=== PATIENT | female | born 1965 | race Caucasian/White ===

== ENCOUNTER 2017-07-31 19:51 | Outpatient (CLI) | payer BC, OTHER ==
[~2017-07-31 19:51] MED LIST: ACET325T49 PO; ASPI-999 PO; BUPR100T15 PO; CITA10TA7 PO; DEXT1DRO OU; DOXA2TAB2 PO; FAMO20TA5 PO; HEPA500018 SC; LISI-552 PO; NF-NACL1GT PO; Oxycodone Hcl PO; POTA20TA8 PO
[2017-08-31] MEDS ORDERED: SULF1TAB35 PO (19:23)
== END 2017-08-01 06:15 | disposition home or self-care (01) ==
LOC: SLEEP 19:51
DX: G47.10 Hypersomnia, unspecified (principal); R06.83 Snoring; I10 Essential (primary) hypertension
CPT/HCPCS: 95811

== ENCOUNTER 2017-08-31 12:11 | Day surgery (SDC) | payer BC ==
[~2017-08-31] VITALS: Ht 170.2 cm; Wt 111.1 kg
[~2017-08-31 12:11] MED LIST changes: +HEPA500017 SC; -HEPA500018 SC
--- OUTSIDE RECORDS SUMMARY | 2017-08-31 12:15 | XMS REPORT | Encounter Summary ---
Author Author [facility] Organization [facility] Address Unknown Phone Unavailable Care Team Providers Care Editor Publications Name Role Phone PCP Unavailable Encounter Details Date Type Department Care Team Description 07/08/2017 Ancillary Rad Outpatient, Radiologist Diagnosis unknown Orders [address] [place] [address] Social History Tobacco Use Types Packs/Day Years Used Date Never Smoker Smokeless Tobacco: Never Used Alcohol Use Drinks/Week oz/Week Comments No 0 Standard 0.0 drinks or equivalent Sex Assigned at Date Recorded Not on file as of this encounter Functional Status Functional Status Response Date of Assessment Does the patient have a hearing impairment: No 05/08/2016 as of this encounter Plan of Treatment Not on fileas of this encounter Results * CTA HEAD EXTERNAL IMAGING (07/05/2017) Narrative This order has been auto finalized and does not contain a result. in this encounter Visit Diagnoses Diagnosis Diagnosis unknown Other unknown and unspecified cause of morbidity or mortality in this encounter
--- OUTSIDE RECORDS SUMMARY | 2017-08-31 12:15 | XMS REPORT | Clinical Summary ---
Author Author [facility] Organization [facility] Address Unknown Phone Unavailable Care Team Providers Care Bradley Linebacker Crewmember Name Role Phone PCP Unavailable Source Comments Some departments are not documenting in the electronic medical record. If you do not see the information that you expected, contact Release of Information in the Health Information Management department at [phone] for further assistance in locating additional records.[facility] Allergies Active Allergy Reactions Severity Noted Date Comments Celecoxib RASH, ITCHING Medium 06/01/2016 Current Medications Prescription Sig. Disp. Refills Start End Date Status Date citalopram (CELEXA) 10 mg Take 10 mg by mouth 05/29/20 Active tablet daily. 16 famotidine (PEPCID) 20 mg Take 20 mg by mouth twice Active tablet daily. ondansetron (ZOFRAN ODT) Take by mouth every 8 Active 4 mg rapid dissolve hours as needed for tablet Nausea. MULTIVITAMIN PO Take 1 Tab by mouth Active daily. oxyCODONE (ROXICODONE, Take 1 Tab by mouth every Active OXY-IR) 5 mg tablet 4 hours as needed for Pain acetaminophen (TYLENOL) Take 500 mg by mouth. Max Active 500 mg tablet of 4,000 mg of acetaminophen in 24 hours. Take 2 tablets as needed aspirin EC 81 mg tablet Take 81 mg by mouth three Active times daily. Take with food. buPROPion (WELLBUTRIN) Take 100 mg by mouth Active 100 mg tablet twice daily. doxazosin (CARDURA) 2 mg Take 2 mg by mouth daily. Active tablet lisinopril (PRINIVIL; Take 20 mg by mouth Active ZESTRIL) 20 mg tablet daily. potassium chloride SR Take 20 mEq by mouth Active (K-DUR) 10 mEq tablet daily. Take with a meal and a full glass of water. 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) 04/21/2016 Encounters Date Type Specialty Care Team Description 07/08/2017 Ancillary Radiology Outpatient, Radiologist Diagnosis unknown Orders 07/05/2017 Hospital Radiology Encounter from Last 3 Months Family History Medical History Relation Name Comments Coronary Artery Disease Father Heart Attack Father Hypertension Father Stroke Father Cancer Maternal Grandmother Cataract Maternal Grandmother Dementia Mother Relation Name Status Comments Father (Age 60's?) Maternal Grandmother Mother pneumonia (Age 80?) Social History Tobacco Use Types Packs/Day Years Used Date Never Smoker Smokeless Tobacco: Never Used Alcohol Use Drinks/Week oz/Week Comments No 0 Standard 0.0 drinks or equivalent Sex Assigned at Date Recorded Not on file Last Filed Vital Signs Vital Sign Reading Time Taken Blood Pressure 112/78 04/03/2017 1:14 PM CDT Pulse 72 04/03/2017 1:14 PM CDT Temperature 36.4 C (97.5 F) 06/01/2016 11:33 AM CDT Respiratory Rate 18 06/01/2016 11:33 AM CDT Oxygen Saturation 95% 05/11/2016 9:30 AM CDT Inhaled Oxygen - - Concentration Weight 110.7 kg (244 lb) 04/03/2017 1:14 PM CDT Height 170.2 cm (5' 7") 04/03/2017 1:14 PM CDT Body Mass Index 38.22 04/03/2017 1:14 PM CDT Plan of Treatment Health Maintenance Due Date Last Done Comments PHYSICAL (COMPREHENSIVE) 1972 EXAM PERTUSSIS VACCINE 1976 TETANUS VACCINE 1982 CERVICAL CANCER SCREENING 1995 BREAST CANCER SCREENING 2005 INFLUENZA VACCINE 06/18/2017 COLORECTAL CANCER 04/30/2026 04/30/2016, 04/30/2016 SCREENING Implants Implanted Type Area Tool Crib Manager Device Expiration Model / Identifier Date Serial / Lot Device Closure 6fr Starclose Se Right: [employer]:VASC [id number] / Vascular Nitinol Clip - [id number] Femoral DEV [id number] . / Implanted: Qty: 1 on 04/21/2016 by Artery [id number] Bolivar MD Substitute Tissue 3x3in Lyoplant Left: AESCULAP NEURO 09/17/2018 [id number] / Dura Sodium Hydroxide [employer] [id number] / Implanted: Qty: 1 on 04/24/2016 by [id number] Modesto Hsu MD Synapse Medical Aneurysm Clip Left: 45.711 / Implanted: Qty: 1 on 04/24/2016 by Brain N/A / Modesto Hsu MD N/A Synapse Medical Aneurysm Clip Left: 45.680 / Implanted: Qty: 1 on 04/24/2016 by Brain N/A / Modesto Hsu MD N/A Device Closure 70cm 6fr Angio-Seal Right: [employer] MED [id number] / Vip .035in Vascular Femoral [id number] . / Implanted: Qty: 1 on 04/27/2016 by Artery [id number] Abiodun Silva MD System Shunt Progav 2.0 Cranial AESCULAP INC 05/17/2020 [id number] / Implanted: Qty: 1 on 05/08/2016 by [id number] / Mihai Collier MD [id number] Results * CTA HEAD EXTERNAL IMAGING (07/05/2017) Narrative This order has been auto finalized and does not contain a result. from Last 3 Months
--- OUTSIDE RECORDS SUMMARY | 2017-08-31 12:15 | XMS REPORT | Encounter Summary ---
Author Author [facility] Organization [facility] Address Unknown Phone Unavailable Care Team Providers Care Internet Webmaster Name Role Phone PCP Unavailable Encounter Details Date Type Department Care Team Description 07/05/2017 Hospital [facility] Radiology [address] [place] [address] Social History Tobacco Use Types Packs/Day Years Used Date Never Smoker Smokeless Tobacco: Never Used Alcohol Use Drinks/Week oz/Week Comments No 0 Standard 0.0 drinks or equivalent Sex Assigned at Date Recorded Not on file as of this encounter Functional Status Functional Status Response Date of Assessment Does the patient have a hearing impairment: No 05/08/2016 as of this encounter Medications at Time of Discharge Medication Sig. Disp. Refills Start Date End Date acetaminophen (TYLENOL) Take 500 mg by mouth. Max 500 mg tablet of 4,000 mg of acetaminophen in 24 hours. Take 2 tablets as needed aspirin EC 81 mg tablet Take 81 mg by mouth three times daily. Take with food. buPROPion (WELLBUTRIN) Take 100 mg by mouth 100 mg tablet twice daily. citalopram (CELEXA) 10 mg Take 10 mg by mouth 05/29/2016 tablet daily. doxazosin (CARDURA) 2 mg Take 2 mg by mouth daily. tablet famotidine (PEPCID) 20 mg Take 20 mg by mouth twice tablet daily. lisinopril (PRINIVIL; Take 20 mg by mouth ZESTRIL) 20 mg tablet daily. MULTIVITAMIN PO Take 1 Tab by mouth daily. ondansetron (ZOFRAN ODT) Take by mouth every 8 4 mg rapid dissolve hours as needed for tablet Nausea. oxyCODONE (ROXICODONE, Take 1 Tab by mouth every OXY-IR) 5 mg tablet 4 hours as needed for Pain potassium chloride SR Take 20 mEq by mouth (K-DUR) 10 mEq tablet daily. Take with a meal and a full glass of water. as of this encounter Plan of Treatment Not on fileas of this encounter Results * CTA HEAD EXTERNAL IMAGING (07/05/2017) Narrative This order has been auto finalized and does not contain a result. in this encounter Visit Diagnoses Diagnosis Diagnosis unknown Other unknown and unspecified cause of morbidity or mortality in this encounter
[2017-08-31] MEDS ORDERED: NS IV 1000 ML 1,000 ML IV ONE (12:39)
[2017-08-31] MEDS ORDERED: ONDANSETRON 4 MG/2 ML (SDV) Z0FRAN IVP ONE (13:15)
--- NOTE | 2017-08-31 13:17 | ED GI ---
General Chief Complaint: Dizziness/Syncope Stated Complaint: DIZZY, UPSET STOMACH, "WATER IN HEAD" Nursing Triage Note: c/o intermittant dizziness and nausea x 6 weeks. Reportedly had a MRI and CT in [place] where her provider is 3 weeks ago. GCS-15. Hx of cerbral aneurysm with shunt placement 2014. Sepsis Screen: No Definite Risk Source of Information: Patient, Family ([id number]) Exam Limitations: No Limitations History of Present Illness Time Seen By Provider: 12:12 Initial Comments Patient presents to ER by private conveyance with chief complaint that she was having nausea with vomiting, malaise for the past couple weeks. She has a history of a subarachnoid hemorrhage approximately one year ago and shunt placement. At the time 2 weeks ago when her nausea and vomiting started she thought she had a stomach bug because her was experiencing the same thing. She went to her primary care doctor who ordered a CT scan of the head in [place] to evaluate her shunt and she was told it was normal by both her primary care physician and her neurologist in [place], Dr. Lincoln. She says her symptoms got better after a couple days but then 3 or 4 days later they came back for a couple days. Every 3-4 days she's had a day or 2 of nausea and vomiting. She has Zofran at home but has not used it the last 2 days because she feels that it does not work very well for her. She denies dysuria or discharge, cough or shortness of breath, chest pain or headache. She says she checked her temperature several times and has been is 99.9. She denies any loose stools and states that she's been constipated and had a bowel movement yesterday with rabbit pellets. She describes several episodes where her nausea comes on very rapidly after eating food one to 2 hours later. She still has her gallbladder intact. She has mild tenderness in her abdomen on the right side, worse after vomiting. She states she's had an appetite but been unable to keep anything down and has vomited 4 times in the last 24 hours. She has also been dizzy with position changes. She said she was referred to ENT within the last 2 weeks and they did an MRI looking for a tumor but it was negative. Allergies and Home Medications Allergies Coded Allergies: No Known Drug Allergies (Unverified , 04/21/16) Home Medications Acetaminophen 325 Mg Tablet, 650 MG PO Q4H PRN for MILD PAIN, #100 Prescribed by: KULDIP WALTERS on 05/28/16 1642 Aspirin 81 Mg Tab.chew, 81 MG PO Q8HR, #90 Prescribed by: KULDIP WALTERS on 05/28/16 164 Bupropion HCl 100 Mg Tablet, 100 MG PO BID, #60 Prescribed by: KULDIP WALTERS on 05/28/16 164 Citalopram Hydrobromide 10 Mg Tablet, 10 MG PO DAILY, #30 Prescribed by: KULDIP WALTERS on 05/28/16 1642 Dextran 70/Hypromellose/Pf 1 Each Droperette, 1 EACH OU QID, #1 Prescribed by: KULDIP WALTERS on 05/28/16 164 Doxazosin Mesylate 2 Mg Tablet, 2 MG PO HS, #30 Prescribed by: KULDIP WALTERS on 05/28/16 1642 Famotidine 20 Mg Tablet, 20 MG PO BID, #60 Prescribed by: KULDIP WALTERS on 05/28/16 1642 Heparin Sodium,Porcine 5,000 Unit/1 Ml Vial, 5,000 UNITS SC Q8H, #1 Prescribed by: KULDIP WALTERS on 05/28/16 1642 Lisinopril 20 Mg Tablet, 20 MG PO DAILY, #30 Prescribed by: KULDIP AWLTERS on 05/28/16 1642 Potassium Chloride 20 Meq Tab.er.prt, 40 MEQ PO DAILY@0700, #30 Prescribed by: KULDIP WALTERS on 05/28/16 164 Sodium Chloride 1 Gm Tab, 2 GM PO TID, #60 Prescribed by: KULDIP WALTERS on 05/28/16 1642 [Oxycodone Hcl] 5 MG TAB, 5 MG PO Q4H PRN for PAIN, #60 Prescribed by: KULDIP WALTERS on 05/28/16 1643 Review of Systems Constitutional: No chills, dizziness, No fever, malaise EENTM: No Blurred Vision, No Double Vision, No Eye Pain Respiratory: Denies Cough, Denies Orthopnea, Denies Shortness of Air Cardiovascular: Denies Chest Pain, Denies Lightheadedness Gastrointestinal: See HPI, Denies Abdomen Distended, Abdominal Pain, Constipated, Denies Diarrhea, Nausea, Denies Poor Appetite, Vomiting Genitourinary: Denies Burning, Denies Discharge Musculoskeletal: No back pain, No joint pain Skin: No pruritus, No rash Psychiatric/Neurological: Denies Headache, Denies Numbness, Denies Paresthesia Endocrine: Denies Unexplained Weight Gain, Denies Unexplaned Weight Loss Hematologic/Lymphatic: Denies Easy Bleeding, Denies Easy Bruising Past Jkrgccs-Xwmzbk-Sldngr Hx Patient Social History Alcohol Use: Denies Use Recreational Drug Use: No Smoking Status: Former Smoker Recent Foreign Travel: No Contact w/Someone Who Travel: No Recent Infectious Disease Expo: No Immunizations Up To Date Tetanus Booster (TDap): Unknown Surgeries History of Surgeries: Yes (craniotomy-shunt placement (cerebral aneurysm)) Respiratory History of Respiratory Disorde: Yes (post vent-resp insufficiency-) Currently Using CPAP: No Currently Using BIPAP: No Cardiovascular History of Cardiac Disorders: Yes Neurological History of Neurological Disord: Yes (subarachnoid hemorrage) Reproductive System Hx Reproductive Disorders: No Sexually Transmitted Disease: No HIV/AIDS: No Female Reproductive Disorders: Denies Gastrointestinal History of Gastrointestinal Di: Yes (ilius; current) Musculoskeletal History of Musculoskeletal Dis: Yes Musculoskeletal Disorders: Foot Drop Endocrine History of Endocrine Disorders: No Cancer History of Cancer: No Psychosocial History of Psychiatric Problem: Yes Behavioral Health Disorders: Anxiety, Depression Integumentary History of Skin or Integumenta: No Blood Transfusions History of Blood Disorders: No Family Medical History Family Medial History: Patient reports no known family medical history. Physical Exam Vital Signs VS - Last 72 Hours, by Label 08/31/17 08/31/17 08/31/17 12:29 14:20 14:30 Temp 97.5 97.5 Pulse 74 68 83 81 Resp 16 B/P (MAP) 111/67 O2 Delivery Room Air Capillary Refill : Less Than 3 Seconds General Appearance: WD/WN, mild distress, obese HEENT: PERRL/EOMI, TMs normal, pharynx normal Neck: non-tender, supple, normal inspection Respiratory: chest non-tender, lungs clear, normal breath sounds Cardiovascular: normal peripheral pulses, regular rate, rhythm, no edema Peripheral Pulses: 1+ Dorsalis Pedis (R), 1+ Left Dors-Pedis (L), 2+ Radial Pulses (R), 2+ Radial Pulses (L) Gastrointestinal: normal bowel sounds, soft, no organomegaly (Gutierrez's negative ), tenderness (right upper quadrant and right lower quadrant) Extremities: non-tender, normal inspection, no pedal edema, no calf tenderness , normal capillary refill Neurologic/Psychiatric: alert, normal mood/affect, oriented x 3 Skin: normal color, warm/dry Focused Exam Evaluation Lactate Level Laboratory Tests 08/31/17 14:06: Lactic Acid Level 0.73 Lactic Acid Level Laboratory Tests Test 08/31/17 14:06 Lactic Acid Level 0.73 MMOL/L (0.50-2.00) Date of ETT Placement: Apr 21, 2016 Time of ETT Placement: 004 Progress/Results/Core Measures Results/Orders Lab Results Laboratory Tests Test 08/31/17 13:15 08/31/17 14:06 08/31/17 14:55 Range/Units White Blood Count 12.4 H 4.3-11.0 10^3/uL Red Blood Count 4.70 4.35-5.85 10^6/uL Hemoglobin 13.8 11.5-16.0 G/DL Hematocrit 41 35-52 % Mean Corpuscular Volume 88 80-99 FL Mean Corpuscular Hemoglobin 29 25-34 PG Mean Corpuscular Hemoglobin Concent 34 32-36 G/DL Red Cell Distribution Width 15.4 H 10.0-14.5 % Platelet Count 408 H 130-400 10^3/uL Mean Platelet Volume 9.7 7.4-10.4 FL Neutrophils (%) (Auto) 82 H 42-75 % Lymphocytes (%) (Auto) 10 L 12-44 % Monocytes (%) (Auto) 8 0-12 % Eosinophils (%) (Auto) 1 0-10 % Basophils (%) (Auto) 0 0-10 % Neutrophils # (Auto) 10.1 H 1.8-7.8 X 10^3 Lymphocytes # (Auto) 1.2 1.0-4.0 X 10^3 Monocytes # (Auto) 1.0 0.0-1.0 X 10^3 Eosinophils # (Auto) 0.1 0.0-0.3 10^3/uL Basophils # (Auto) 0.0 0.0-0.1 10^3/uL Sodium Level 139 135-145 MMOL/L Potassium Level 4.3 3.6-5.0 MMOL/L Chloride Level 106 98-107 MMOL/L Carbon Dioxide Level 23 21-32 MMOL/L Anion Gap 10 5-14 MMOL/L Blood Urea Nitrogen 16 7-18 MG/DL Creatinine 1.01 0.60-1.30 MG/DL Estimat Glomerular Filtration Rate 58 BUN/Creatinine Ratio 16 Glucose Level 119 H 70-105 MG/DL Calcium Level 9.3 8.5-10.1 MG/DL Magnesium Level 2.3 1.8-2.4 MG/DL Total Bilirubin 0.5 0.1-1.0 MG/DL Aspartate Amino Transf (AST/SGOT) 20 5-34 U/L Alanine Aminotransferase (ALT/SGPT) 21 0-55 U/L Alkaline Phosphatase 136 40-136 U/L Troponin I < 0.30 <0.30 NG/ML C-Reactive Protein High Sensitivity 3.93 H 0.00-0.50 MG/DL Total Protein 7.7 6.4-8.2 GM/DL Albumin 4.2 3.2-4.5 GM/DL Lipase 43 8-78 U/L Lactic Acid Level 0.73 0.50-2.00 MMOL/L Urine Color BROWN H Urine pH 6.5 5-9 Urine Specific Sharps 1.020 1.016-1.022 Urine Protein 3+ H NEGATIVE Urine Glucose (UA) NEGATIVE NEGATIVE Urine Ketones 2+ H NEGATIVE Urine Nitrite POSITIVE H NEGATIVE Urine Bilirubin 1+ H NEGATIVE Urine Urobilinogen 1 NORMAL MG/DL Urine Leukocyte Esterase 2+ H NEGATIVE Urine RBC (Auto) 5+ H NEGATIVE Urine RBC TNTC H /HPF Urine WBC 10-25 H /HPF Urine Crystals NONE /LPF Urine Bacteria LARGE H /HPF Urine Casts NONE /LPF Urine Mucus NEGATIVE /LPF Urine Culture Indicated YES My Orders Orders - SIMA BENITEZ Cbc With Automated Diff (08/31/17 12:39) Comprehensive Metabolic Panel (08/31/17 12:39) Hs C Reactive Protein (08/31/17 12:39) Lipase (08/31/17 12:39) Magnesium (08/31/17 12:39) Troponin I (08/31/17 12:39) Ua Culture If Indicated (08/31/17 12:39) Us Gallbladder [id number] (08/31/17 12:39) Saline Lock/Iv-Start (08/31/17 12:39) Ns Iv 1000 Ml (Sodium Chloride 0.9%) (08/31/17 12:39) Urine Bedside (08/31/17 12:39) Ondansetron Injection (Zofran Injectio (08/31/17 13:15) Orthostatic Vital Signs (08/31/17 13:21) Lactic Acid Analyzer (08/31/17 13:57) Promethazine Injection (Phenergan Injec (08/31/17 14:15) Ketorolac Injection (Toradol Injection) (08/31/17 14:15) Medications Given in ED Current Medications Medications Dose Ordered Sig/Kerline Route Start Time Stop Time Status Last Admin Dose Admin Ketorolac Tromethamine 15 mg ONCE ONCE IVP 08/31/17 14:15 08/31/17 14:16 DC 08/31/17 14:20 15 MG Ondansetron HCl 4 mg ONCE ONCE IVP 08/31/17 13:15 08/31/17 13:16 DC 08/31/17 13:10 4 MG Promethazine HCl 25 mg ONCE ONCE IVP 08/31/17 14:15 08/31/17 14:16 DC 08/31/17 14:20 25 MG Sodium Chloride 1,000 ml @ 0 mls/hr Q0M ONCE IV 08/31/17 12:39 08/31/17 12:43 DC 08/31/17 13:10 1,000 MLS/HR Vital Signs/I&O Vital Sign - Last 12Hours 08/31/17 08/31/17 08/31/17 12:29 14:20 14:30 Temp 97.5 97.5 Pulse 74 68 83 81 Resp 16 B/P (MAP) 111/67 O2 Delivery Room Air Blood Pressure Mean: 82 Progress Note : Time: 13:21 Progress Note We'll get an ultrasound her gallbladder and do some Kell-Hallpike maneuvers trying to figure out the source of her dizziness and vomiting. Seems a her vomiting was comes after eating. Her dizziness due to postural change may be orthostatics static vital signs. Diagnostic Imaging Diagonstic Imaging: Ultrasound Plain Films/CT/US/NM/MRI: abdomen (right upper quadrant, gallbladder) Comments NAME: CHARLIE SANDERS [facility] REC#: [id number] PHYSICIAN: SIMA BENITEZ MD CC: MICHAEL HEATON MD; SIMA BENITEZ Page 2 of 2 RADIOLOGY REPORT VIA [facility], [facility] [place], [place] CC: MICHAEL HEATON MD; SIMA BENITEZ Page 1 of 2 RADIOLOGY REPORT NAME: CHARLIE SANDERS [facility] REC#: [id number] PT STATUS: REG ER : 1965 PHYSICIAN: SIMA BENITEZ MD ADMIT DATE: 08/31/17/ER Signed Date of Exam: 08/31/17 US GALLBLADDER [id number] PROCEDURE: US Gallbladder. TECHNIQUE: Multiple real-time grayscale images were obtained over the right upper quadrant in various projections. INDICATION: Right upper quadrant pain. FINDINGS: The liver appears enlarged measuring up to 20 cm and demonstrates a marked increase in echogenicity which is most compatible with underlying steatosis. There is no demonstration of a focal intrahepatic abnormality or evidence of intrahepatic biliary dilatation. The gallbladder lumen is entirely filled with small stones. There is no definitive gallbladder wall thickening or evidence of pericholecystic fluid. The common bile duct could not be demonstrated. Pancreas is not seen due to overlying bowel gas. The right kidney appears nonobstructed. No free fluid is evident. The rn advanced does report a positive sonographic Gutierrez sign. IMPRESSION: 1. The entire lumen of the gallbladder is filled with gallstones. There is no evidence of intrahepatic biliary dilatation or findings to suggest gallbladder wall thickening or pericholecystic fluid. The patient does however have a positive sonographic Gutierrez sign. A nuclear HIDA scan would be useful for further assessment to evaluate for acute cholecystitis if clinically indicated. There is no free fluid or ascites evident 2. Hepatomegaly with probable steatosis. Dictated by: Dictated on workstation # [id number] Dict: 08/31/17 1341 Trans: 08/31/17 1418 Interpreted by: MICHAEL HEATON MD Electronically signed by: MICHAEL HEATON MD 08/31/17 1418 Reviewed: Reviewed by Me Consults Consults : Consulting Physician: KULDIP ANGUIANO DO Consults Notes Discussed the clinical findings, imaging, lab and he says if she wants to do the surgery today he will take drops and do the surgery today but if she wants to set up outpatient he'll do that too. Departure Communication (Admissions) Time/Spoke to Admitting Phy: 15:25 Communication Discussed the case and the patient's desire to have surgery done today and he says put her in observation some fluids pain and nausea medicine and he will see her later this afternoon. Impression Impression: Primary Impression: Cholelithiasis Qualified Codes: K80.20 - Calculus of gallbladder without cholecystitis without obstruction Additional Impression: Nausea and vomiting Qualified Codes: R11.14 - Bilious vomiting Disposition: 09 ADMITTED INPATIENT Condition: Improved Admissions Decision to Admit Reason: Admit from ER (General) Decision to Admit/Date: Aug 31, 2017 Time/Decision to Admit Time: 15:29 Departure-Patient Inst. Referrals: BERNABE FERRARI DO (PCP/Family) Primary Care Physician Copy Copies To 1: BERNABE FERRARI TITUS J Aug 31, 2017 13:17
[2017-08-31 13:21] LABS: BASOPHILS % (AUTO) 0 % (0-10); EOSINOPHILS # (AUTO) 0.1 10^3/uL (0.0-0.3); EOSINOPHILS % (AUTO) 1 % (0-10); LYMPHOCYTES # (AUTO) 1.2 X 10^3 (1.0-4.0); LYMPHOCYTES % (AUTO) 10 % (12-44); MEAN CORPUSCULAR HEMOGLOBIN 29 PG (25-34); MEAN CORPUSCULAR HGB CONC 34 G/DL (32-36); MEAN CORPUSCULAR VOLUME 88 FL (80-99); MEAN PLATELET VOLUME 9.7 FL (7.4-10.4); MONOCYTES % (AUTO) 8 % (0-12); NEUTROPHILS # (AUTO) 10.1 X 10^3 (1.8-7.8); NEUTROPHILS % (AUTO) 82 % (42-75); PLATELET COUNT 408 10^3/uL (130-400); RED CELL DISTRIBUTION WIDTH 15.4 % (10.0-14.5); WHITE BLOOD COUNT 12.4 10^3/uL (4.3-11.0)
[2017-08-31 13:39] LABS: ALANINE AMINOTRANSFERASE 21 U/L (0-55); ALBUMIN 4.2 GM/DL (3.2-4.5); ANION GAP 10 MMOL/L (5-14); ASPARTATE AMINO TRANSFERASE 20 U/L (5-34); BILIRUBIN,TOTAL 0.5 MG/DL (0.1-1.0); BLOOD UREA NITROGEN 16 MG/DL (7-18); BUN/CREATININE RATIO 16; CALCIUM 9.3 MG/DL (8.5-10.1); CARBON DIOXIDE 23 MMOL/L (21-32); CHLORIDE 106 MMOL/L (98-107); CREATININE SERUM 1.01 MG/DL (0.60-1.30); GFR ESTIMATED 58; GLUCOSE 119 MG/DL (70-105); LIPASE 43 U/L (8-78); MAGNESIUM 2.3 MG/DL (1.8-2.4); POTASSIUM 4.3 MMOL/L (3.6-5.0); SODIUM 139 MMOL/L (135-145); TOTAL PROTEIN 7.7 GM/DL (6.4-8.2); hs C REACTIVE PROTEIN 3.93 MG/DL (0.00-0.50)
[2017-08-31 13:44] LABS: TROPONIN I < 0.30 NG/ML (<0.30)
--- NOTE | 2017-08-31 13:59 | Diagnostic Imaging Report ---
PROCEDURE: US Gallbladder. TECHNIQUE: Multiple real-time grayscale images were obtained over the right upper quadrant in various projections. INDICATION: Right upper quadrant pain. FINDINGS: The liver appears enlarged measuring up to 20 cm and demonstrates a marked increase in echogenicity which is most compatible with underlying steatosis. There is no demonstration of a focal intrahepatic abnormality or evidence of intrahepatic biliary dilatation. The gallbladder lumen is entirely filled with small stones. There is no definitive gallbladder wall thickening or evidence of pericholecystic fluid. The common bile duct could not be demonstrated. Pancreas is not seen due to overlying bowel gas. The right kidney appears nonobstructed. No free fluid is evident. The cold meat cook does report a positive sonographic Gutierrez sign. IMPRESSION: 1. The entire lumen of the gallbladder is filled with gallstones. There is no evidence of intrahepatic biliary dilatation or findings to suggest gallbladder wall thickening or pericholecystic fluid. The patient does however have a positive sonographic Gutierrez sign. A nuclear HIDA scan would be useful for further assessment to evaluate for acute cholecystitis if clinically indicated. There is no free fluid or ascites evident 2. Hepatomegaly with probable steatosis. Dictated by: Dictated on workstation # [id number]
[2017-08-31] MEDS ORDERED: KETOROLAC 30 MG/ML VIAL IVP ONE (14:15)
[2017-08-31] MEDS ORDERED: PROMETHAZINE INJ 25 MG/ML (PHENERGAN) AMP IVP ONE (14:15)
[2017-08-31 15:16] LABS: KETONES,URINE 2+ (NEGATIVE); LEUKOCYTE ESTERASE ,URINE 2+ (NEGATIVE); NITRITE,URINE POSITIVE (NEGATIVE); PH,URINE 6.5 (5-9); PROTEIN,URINE 3+ (NEGATIVE); UROBILINOGEN,URINE 1 MG/DL (NORMAL)
[2017-08-31 15:24] LABS: BILIRUBIN,URINE 1+ (NEGATIVE)
--- OUTSIDE RECORDS SUMMARY | 2017-08-31 15:38 | XMS REPORT | Encounter Summary ---
Author Author [facility] Organization [facility] Address Unknown Phone Unavailable Care Team Providers Care Workers Compensation Manager Name Role Phone PCP Unavailable Encounter Details Date Type Department Care Team Description 07/05/2017 Hospital [facility] Radiology [address] [place] [address] Social History Tobacco Use Types Packs/Day Years [...]
--- OUTSIDE RECORDS SUMMARY | 2017-08-31 15:38 | XMS REPORT | Encounter Summary ---
Author Author [facility] Organization [facility] Address Unknown Phone Unavailable Care Team Providers Care Family Specialist Name Role Phone PCP Unavailable Encounter Details Date Type Department Care Team Description 07/08/2017 Ancillary Rad Outpatient, Radiologist Diagnosis unknown Orders [address] [place] [address] Social History Tobacco Use Types Packs/Day Years [...]
--- OUTSIDE RECORDS SUMMARY | 2017-08-31 15:38 | XMS REPORT | Clinical Summary ---
Author Author [facility] Organization [facility] Address Unknown Phone Unavailable Care Team Providers Care Director Global Development Name Role Phone PCP Unavailable Source Comments Some departments are not documenting in the electronic medical record. If you do not see the information that you expected, contact Release of Information in the Health Information Management department at [phone] for further assistance in locating additional records.[facility] Allergies Active Allergy Reactions Severity Noted [...] 04/29/2016 Respiratory insufficiency 04/29/2016 SAH (subarachnoid hemorrhage) ([facility]) 04/21/2016 Encounters Date Type Specialty Care [...] 04/30/2016, 04/30/2016 SCREENING Implants Implanted Type Area Archival Records Clerk Device Expiration Model / Identifier Date Serial / Lot Device Closure 6fr Starclose Se Right: CARNEY [employer]:VASC [id number] / Vascular Nitinol Clip - [id number] Femoral DEV [id number] . / Implanted: Qty: 1 on 04/21/2016 by Artery [id number] Db Bolivar MD Substitute Tissue 3x3in Lyoplant Left: AESCULAP NEURO 09/17/2018 [id number] / Dura Sodium Hydroxide [employer] Brain DIVISION [id number] / Implanted: Qty: 1 on 04/24/2016 by [id number] Modesto Hsu MD Synapse Medical Aneurysm Clip Left: 45.711 / Implanted: Qty: 1 on 04/24/2016 by Brain N/A / Modesto Hsu MD N/A Synapse Medical Aneurysm Clip Left: 45.680 / Implanted: Qty: 1 on 04/24/2016 by Brain N/A / Modesto Hsu MD N/A Device Closure 70cm 6fr Angio-Seal Right: [employer] MED [id number] / Vip .035in Vascular Femoral 4591 . / Implanted: Qty: 1 on 04/27/2016 by Artery [id number] Abiodun Silva MD System Shunt Progav 2.0 Cranial AESCULAP INC 05/17/2020 [id number] / Implanted: Qty: 1 on 05/08/2016 by [id number] / Mihai Collier MD [id number] Results * CTA HEAD EXTERNAL IMAGING (07/05/2017) Narrative This order has been auto finalized and does not contain a result. from Last 3 Months
[2017-08-31 16:15] VITALS: BP 118/70
[2017-08-31] MEDS ORDERED: BUPR100T15 PO (16:22)
[2017-08-31] MEDS ORDERED: MONT10TA24 PO (16:22)
[2017-08-31] MEDS ORDERED: INFLUENZA TRIvalent 2017-2018 0.5 ML/45 MCG SYR IM ONE ×2 (16:30→21:25)
[2017-08-31] MEDS ORDERED: NS IV 1000 ML 1,000 ML ONE (16:47)
[2017-08-31] MEDS ORDERED: PROMETHAZINE INJ 25 MG/ML (PHENERGAN) AMP IV PRN (17:00)
[2017-08-31] MEDS ORDERED: ONDANSETRON 4 MG/2 ML (SDV) Z0FRAN IV PRN (17:00)
[2017-08-31] MEDS ORDERED: fentaNYL INJECTION 100 MCG/2 ML AMP IV PRN (17:00)
[2017-08-31] MEDS ORDERED: NS IV 1000 ML 1,000 ML IV SCH (17:00)
[2017-08-31] MEDS ORDERED: LIDOCAINE/EPI 1%-1:200,000 (XYLOCAINE) 10 ML VIAL ONE (17:19)
[2017-08-31] MEDS ORDERED: proPOfol 200 MG/20 ML (DIPRIVAN) VIAL IV ONE (17:31)
[2017-08-31] MEDS ORDERED: fentaNYL INJECTION 250 MCG/5 ML AMP ONE (17:31)
[2017-08-31] MEDS ORDERED: MIDAZOLAM 2 MG/2 ML (VERSED) VIAL ONE (17:31)
[2017-08-31] MEDS ORDERED: ROCURONIUM 50 MG/5 ML (ZEMURON) VIAL IV ONE (17:31)
[2017-08-31] MEDS: morphine INJ 10 MG/ML 1ML (SYR OR VIAL) IVP PRN ×2 (17:50→19:55)
[2017-08-31] MEDS ORDERED: ceFAZolin 1,000 MG (ANCEF) VIAL ONE (17:57)
--- NOTE | 2017-08-31 17:57 | History & Physical-Surgical ---
History of Present Illness History of Present Illness Reason for visit/HPI Surgery asked to see regarding Acute cholelithiasis/cholecystitis HPI per ED: Chief Complaint: Dizziness/Syncope Stated Complaint: DIZZY, UPSET STOMACH, "WATER IN HEAD" Nursing Triage Note: c/o intermittant dizziness and nausea x 6 weeks. Reportedly had a MRI and CT in [place] where her provider is 3 weeks ago. GCS-15. Hx of cerbral aneurysm with shunt placement 2014. History of Present Illness Patient presents to ER by private conveyance with chief complaint that she was having nausea with vomiting, malaise for the past couple weeks. She has a history of a subarachnoid hemorrhage approximately one year ago and shunt placement. At the time 2 weeks ago when her nausea and vomiting started she thought she had a stomach bug because her was experiencing the same thing. She went to her primary care doctor who ordered a CT scan of the head in [place] to evaluate her shunt and she was told it was normal by both her primary care physician and her neurologist in [place], Dr. Lincoln. She says her symptoms got better after a couple days but then 3 or 4 days later they came back for a couple days. Every 3-4 days she's had a day or 2 of nausea and vomiting. She has Zofran at home but has not used it the last 2 days because she feels that it does not work very well for her. She denies dysuria or discharge, cough or shortness of breath, chest pain or headache. She says she checked her temperature several times and has been is 99.9. She denies any loose stools and states that she's been constipated and had a bowel movement yesterday with rabbit pellets. She describes several episodes where her nausea comes on very rapidly after eating food one to 2 hours later. She still has her gallbladder intact. She has mild tenderness in her abdomen on the right side, worse after vomiting. She states she's had an appetite but been unable to keep anything down and has vomited 4 times in the last 24 hours. She has also been dizzy with position changes. She said she was referred to ENT within the last 2 weeks and they did an MRI looking for a tumor but it was negative. When I spoke to pt she did not really complain of abdominal pain; but did have pain when they pushed in RUQ during US. She thought movement made her nausea worse. Prior to this she did not know she had gallstones. She said her entire family has had to have their gallbladder removed. She is unsure if food made her problems worse, but "maybe ". Date of Admission Aug 31, 2017 at 15:30 Time Seen by Provider: 17:31 I consulted on this patient on 08/31/17 17:52 Attending Physician Brain Anguiano DO Admitting Physician Fox Padron DO Consult BRAIN ANGUIANO DO Allergies and Home Medications Allergies Coded Allergies: celecoxib (Verified Allergy, Unknown, 08/31/17) Home Medications Acetaminophen 325 Mg Tablet, 650 MG PO Q4H PRN for MILD PAIN, #100 Prescribed by: BRAIN WALTERS on 05/28/16 1642 Aspirin 81 Mg Tab.chew, 81 MG PO Q8HR, #90 Prescribed by: BRAIN WALTERS on 05/28/16 1642 Bupropion HCl 100 Mg Tablet, 300 MG PO DAILY, (Reported) Citalopram Hydrobromide 10 Mg Tablet, 10 MG PO DAILY, #30 Prescribed by: BRAIN WALTERS on 05/28/16 1642 Dextran 70/Hypromellose/Pf 1 Each Droperette, 1 EACH OU QID, #1 Prescribed by: BRAIN WALTERS on 05/28/16 1642 Doxazosin Mesylate 2 Mg Tablet, 2 MG PO HS, #30 Prescribed by: BRAIN WALTERS on 05/28/16 1642 Famotidine 20 Mg Tablet, 20 MG PO BID, #60 Prescribed by: BRAIN WALTERS on 05/28/16 1642 Lisinopril 20 Mg Tablet, 20 MG PO DAILY, #30 Prescribed by: BRAIN WALTERS on 05/28/16 1642 Montelukast Sodium 10 Mg Tablet, 10 MG PO HS, (Reported) Potassium Chloride 20 Meq Tab.er.prt, 40 MEQ PO DAILY@0700, #30 Prescribed by: BRAIN WALTERS on 05/28/16 1642 [Oxycodone Hcl] 5 MG TAB, 5 MG PO Q4H PRN for PAIN, #60 Prescribed by: BRAIN WALTERS on 05/28/16 1643 Past Objoklt-Qwgwlb-Chceng Hx Patient Social History Alcohol Use: Denies Use Recreational Drug Use: No Smoking Status: Never a Smoker Recent Foreign Travel: No Contact w/Someone Who Travel: No Recent Infectious Disease Expo: No Recent Hopitalizations: No Physical Abuse Screen: No Sexual Abuse: No Immunizations Up To Date Tetanus Booster (TDap): Unknown Seasonal Allergies Seasonal Allergies: Yes Surgeries History of Surgeries: Yes (craniotomy-shunt placement (cerebral aneurysm)) Respiratory History of Respiratory Disorde: Yes (post vent-resp insufficiency-) Respiratory Disorders: Sleep Apnea Cardiovascular History of Cardiac Disorders: Yes Neurological History of Neurological Disord: Yes (subarachnoid hemorrage) Reproductive System Hx Reproductive Disorders: No Sexually Transmitted Disease: No HIV/AIDS: No Female Reproductive Disorders: Denies Genitourinary History of Genitourinary Disor: No Gastrointestinal History of Gastrointestinal Di: Yes (ilius; current; PREVIOUS PEG TUBE ) Musculoskeletal History of Musculoskeletal Dis: Yes Musculoskeletal Disorders: Foot Drop Endocrine History of Endocrine Disorders: No HEENT History of HEENT Disorders: Yes HEENT Disorders: Cataract Cancer History of Cancer: No Psychosocial History of Psychiatric Problem: Yes Behavioral Health Disorders: Anxiety, Depression Integumentary History of Skin or Integumenta: No Blood Transfusions History of Blood Disorders: No Family Medical History Significant Family History: Hypertension Constitutional: No chills, No diaphoresis, weakness EENTM: No blurred vision, No mouth pain, No mouth swelling, No epistaxis, No throat swelling Respiratory: No cough, No dyspnea on exertion, No hemoptysis Cardiovascular: No chest pain, No edema, No palpitations Gastrointestinal: No dysphagia, loss of appetite, nausea, vomiting Genitourinary: No dysuria, No frequency, No hematuria : No Musculoskeletal: back pain, joint pain, muscle stiffness Skin: No change in color, No change in hair/nails Psychiatric/Neurological: Anxiety, Depressed, Headache, Denies Seizure Other pt denies any abnormal bruising or bleeding, no heat or cold intolerance Physical Exam Vital Signs Vital Sign - Last 12Hours 08/31/17 12:29 Temp 97.5 Pulse 74 Resp 16 B/P (MAP) 111/67 O2 Delivery Room Air Capillary Refill : Less Than 3 Seconds General Appearance: WD/WN, Mild Distress, Other (morbidly obese) Eyes: Bilateral Eye PERRL, Bilateral Eye EOMI HEENT: Pharynx Normal, No Pale Conjunctivae (L), No Pale Conjunctivae (R), No Scleral Icterus (L), No Scleral Icterus (R) Neck: Full Range of Motion, Non Tender, Supple Respiratory: Chest Non Tender, Lungs Clear, Normal Breath Sounds, No Accessory Muscle Use, No Respiratory Distress Cardiovascular: Regular Rate, Rhythm, No Edema, No Murmur Gastrointestinal: Normal Bowel Sounds, No Organomegaly, Soft, Tenderness (RUQ with deep palpation) Rectal: Deferred Back: No CVA Tenderness, No Vertebral Tenderness Extremity: Normal Capillary Refill, Normal Inspection, Normal Range of Motion, Non Tender, No Calf Tenderness Neurologic/Psychiatric: Alert, Oriented x3, Normal Mood/Affect, rn military II-XII Norm as Tested, Other (foot drop) Skin: Normal Color, Warm/Dry Lymphatic: No Adenopathy (neck, axilla or groin) Data Review Labs Laboratory Tests 08/31/17 13:15: White Blood Count 12.4H, Red Blood Count 4.70, Hemoglobin 13.8, Hematocrit 41, Mean Corpuscular Volume 88, Mean Corpuscular Hemoglobin 29, Mean Corpuscular Hemoglobin Concent 34, Red Cell Distribution Width 15.4H, Platelet Count 408H, Mean Platelet Volume 9.7, Neutrophils (%) (Auto) 82H, Lymphocytes (%) (Auto) 10L , Monocytes (%) (Auto) 8, Eosinophils (%) (Auto) 1, Basophils (%) (Auto) 0, Neutrophils # (Auto) 10.1H, Lymphocytes # (Auto) 1.2, Monocytes # (Auto) 1.0, Eosinophils # (Auto) 0.1, Basophils # (Auto) 0.0, Sodium Level 139, Potassium Level 4.3, Chloride Level 106, Carbon Dioxide Level 23, Anion Gap 10, Blood Urea Nitrogen 16, Creatinine 1.01, Estimat Glomerular Filtration Rate 58, BUN/ Creatinine Ratio 16, Glucose Level 119H, Calcium Level 9.3, Magnesium Level 2.3 , Total Bilirubin 0.5, Aspartate Amino Transf (AST/SGOT) 20, Alanine Aminotransferase (ALT/SGPT) 21, Alkaline Phosphatase 136, Troponin I < 0.30, C- Reactive Protein High Sensitivity 3.93H, Total Protein 7.7, Albumin 4.2, Lipase 43 08/31/17 14:06: Lactic Acid Level 0.73 08/31/17 14:55: Urine Color BROWNH, Urine Clarity VERY CLOUDYH, Urine pH 6.5, Urine Specific Brandywine 1.020, Urine Protein 3+H, Urine Glucose (UA) NEGATIVE, Urine Ketones 2+H , Urine Nitrite POSITIVEH, Urine Bilirubin 1+H, Urine Urobilinogen 1, Urine Leukocyte Esterase 2+H, Urine RBC (Auto) 5+H, Urine RBC TNTCH, Urine WBC 10-25H , Urine Crystals NONE, Urine Bacteria LARGEH, Urine Casts NONE, Urine Mucus NEGATIVE, Urine Culture Indicated YES Assessment/Plan Assessment/Plan Assessment/Plan 1. Intractable Nausea 2. Acute Cholelithiasis/Cholecystitis - US read by radiologist as "full of stones" 3. UTI -will send home with ABX to treat this Plan is to take pt for Laparoscopic Cholecystectomy possible cholangiogram possible open. Discussed risks and complications with pt including but not limited to pain, bleeding, infection, scar, damage to bowel, damage to shunt and even damage to bile duct with need for further procedure. I also talked with pt about the fact that this might not "cure" all of her nausea. She understands, all questions answered to her satisfation and she wants to proceed with the surgery. Clinical Quality Measures DVT/VTE Risk/Contraindication: Risk Factor Score Per Nursin RFS Level Per Nursing on Admit: 2=Moderate BRAIN ANGUIANO DO Aug 31, 2017 17:57
[2017-08-31] MEDS ORDERED: ceFAZolin INJECTION 3,000 MG in NS (IVPB) 50 ML IV ONE (18:00)
[2017-08-31] MEDS: LACTATED RINGERS 1,000 ML IV PRN ×2 (18:02→18:06)
[2017-08-31] MEDS ORDERED: MEPERIDINE (DEMEROL) INJ 50 MG/ML ONE (18:29)
[2017-08-31] MEDS ORDERED: morphine INJ 10 MG/ML 1ML (SYR OR VIAL) ONE (18:29)
[2017-08-31] MEDS ORDERED: HYDROmorphone (DILAUDID) 2 MG/ML VIAL ONE (18:30)
[2017-08-31] MEDS ORDERED: ONDANSETRON 4 MG/2 ML (SDV) Z0FRAN ONE ×2 (18:31→18:56)
[2017-08-31] MEDS ORDERED: GLYCOPYRROLATE 0.2 MG/ML (ROBINUL) 2 ML VIAL ONE (18:56)
[2017-08-31] MEDS ORDERED: NEOSTIGMINE (BLOXIVERZ ) 1 MG/1ML 10 ML VIAL ONE (18:56)
[2017-08-31] MEDS ORDERED: SEVOFLURANE (ULTANE) 15 ML INHAL SOLN ONE (19:06)
--- NOTE | 2017-08-31 19:21 | Progress Note-Post Operative ---
Post-Operative Progess Note Surgeon (s)/Supervisor Fiber Locking (s) Surgeon KULDIP ANGUIANO DO Supervisor Fiber Locking: none Pre-Operative Diagnosis Acute rajni/rajni Post-Operative Diagnosis same Procedure & Operative Findings Date of Procedure 08/31/17 Procedure Performed/Findings Lap rajni with IOC Anesthesia Type GET Estimated Blood Loss Estimated blood loss (mL): less than 5ml Specimens/Packing Specimens Removed GB and contents KULDIP ANGUIANO DO Aug 31, 2017 19:21
[2017-08-31] MEDS ORDERED: SULF1TAB35 PO (19:23)
--- NOTE | 2017-08-31 19:25 | Discharge Inst-Surgical ---
Discharge Inst-Surgical Depart Medication/Instructions New, Converted or Re-Newed RX: Transmitted to Pharmacy Patient Instructions Follow up Appt: Make appointment for 1 week. Instructions: No lifting greater than 10 pounds. No strenuous activity. May shower in 24 hours, no tub bath or soaking. Use incentive spirometer at home as directed. No Smoking Skin/Wound Care: May remove bandages in am. You need to leave the Dermabond on over incision it will fall off on its own. Symptoms to Report: Appetite Changes, Extremity Discoloration, Numbness/Tingling, Swelling Increased , Bleeding Excessive, Eyesight Changes, Pain Increased, Urine Color Change, Constipation(Persistent), Fever over 101 degree F, Pain/Pressure in chest, Urinating Difficulty, Cough Up/Vomit Blood, Heart Beat Irreg/Pounding, Pain/ Pressure in jaw, Vaginal Bleeding Increase, Cramps in feet or legs, Lightheadedness, Pain/Pressure in shoulder, Diarrhea(Persistent), Memory Changes Suddenly, Questions/Concerns, Weight gain consecutive days, Dizziness/ Fainting, Nausea/Vomiting, Shortness of Breath, Weight gain over 2 pounds. If eyes or skin turn yellow notify physician. If questions or concerns contact your physician Or seek help at emergency department. Activity Activity Instructions: Avoid Pulling & Pushing, Avoid Stress to Incision Driving Instructions: No Driving/Refer to Diet Discharge Diet: Avoid Fatty Foods, Low Fat/Low Cholesterol Diet After 24 Hours: Clear Liquid if Nauseous If Any Problems/Questions/Issu: Contact Your Physician, Go to Emergency Room Skin/Wound Care Infection Signs and Symptoms: Increased Redness, Foul Odor of Wound, Increased Drainage, Skin Itchy or Has a Rash, Increased Swelling, Temperature Above 101 F Wound Care Comment: Heating pad to neck or shoulder tonight for pain Bathing Instructions: Shower Stitches/Baldemar/Dermabond Dis: Dermabond Ice Pack: Ice On and Off Site KULDIP ANGUIANO DO Aug 31, 2017 19:25
[2017-08-31] MEDS ORDERED: ONDANSETRON 4 MG/2 ML (SDV) Z0FRAN IVP PRN (19:30)
[2017-08-31] MEDS ORDERED: HYDROmorphone (DILAUDID) 2 MG/ML VIAL IVP PRN (19:30)
[2017-08-31 20:30] VITALS: BP 132/83
[2017-08-31 21:00] VITALS: BP 129/82
--- NOTE | 2017-08-31 21:14 | OPERATIVE REPORT ---
DATE OF SERVICE: 08/31/2017 PREOPERATIVE DIAGNOSES: 1. Acute cholecystitis, cholelithiasis. 2. Intractable nausea. 3. Urinary tract infection. POSTOPERATIVE DIAGNOSES: 1. Acute cholecystitis, cholelithiasis. 2. Intractable nausea. 3. Urinary tract infection. PROCEDURE: Laparoscopic cholecystectomy, intraoperative cholangiogram. SURGEON: Dr. Anguiano. WORKDAY SENIOR ASSOCIATE: None. ANESTHESIA: General endotracheal tube. SPECIMEN: Gallbladder and contents. BLOOD LOSS: Less than 5 mL FLUIDS: Per anesthesia. POSTOPERATIVE CONDITION: Stable. INDICATION FOR PROCEDURE: The patient is a 51-year-old female who has been having nausea intractable for at least a few days and came in, elevated white count. Ultrasound showed what the radiologist read as gallbladder full of stones, no pericholecystic fluid but positive Gutierrez sign. FINDINGS: The patient did have mildly inflamed gallbladder with some adhesions down to the base, usually indicative of previous cholecystitis attacks. Also noted to have adhesions to the cecum and in the right lower quadrant. Also noted her shunt and the spot for previous PEG tube. Pictures were taken. PROCEDURE NOTE: After informed consent was obtained, the patient was brought to the operating room, placed on table in supine position. She was sterilely prepped and draped in normal fashion. Local lidocaine was used to infiltrate the skin above the umbilicus and made an incision with a #11 blade, carried down through the skin into subcutaneous tissue, then deepened down subcutaneous tissue with Bovie electrocautery down to the fascia. Fascia incised with electrocautery. Bluntly entered the abdomen, swept a finger around, placed 0 Vicryl fizecp-br-yssln suture and then placed 11 mm trocar port under direct visualization. Created pneumoperitoneum and then placed 3 more ports in a normal fashion using local lidocaine, 11 blade for stab incision and the VersaStep system, all done under direct visualization, one subxiphoid and 2 in the right upper quadrant. Took care to stay away from the patient's cranial shunt. The patient was then placed in reverse Trendelenburg and rotated left, able to grasp the gallbladder at the fundus, taken in a superior direction. She had some adhesions down to the base of the gallbladder. This is usually indicative of previous gallbladder attacks. I carefully took these down with blunt dissection as well as Bovie electrocautery. Gallbladder was minimally inflamed. There was not really edema or thickened wall. I grasped at the fundus to the superior direction and then grasped on Greg's pouch in inferolateral direction, started dissecting out cystic duct and cystic artery. I was able to get around the cystic duct and cystic artery and placed a clip distally on the cystic duct and then one distally and 2 proximally on the cystic artery. Cut the cystic duct assisted through with Metzenbaum scissors. Placed a cholangiogram catheter, shot a cholangiogram and saw good spillage of the dye down the cystic duct into the common bile duct and then up in right and left hepatic ducts as well as down into the small intestine. Removed the cholangiogram catheter and then placed 2 clips proximally on the cystic duct. I cut the cystic duct and the cystic artery with Metzenbaum scissors. I then removed the gallbladder from the bed of the liver with L-hook cautery. The gallbladder did rip as we were holding it, probably from the clamps. I carefully suctioned out this bile, took picture of some small stones and then completely removed the gallbladder from the bed of the liver with L-hook cautery. Once this was completely removed, switched to 5 mm camera, brought an Endobag into the abdomen, placed the gallbladder in the bag and then removed this through the supraumbilical incision. Placed the port back in the abdomen, copiously irrigated with normal saline, suctioned this out. Hemostasis obtained in the bed of the liver with Bovie electrocautery and then the patient was placed supine. I looked around, no other obvious pathology. Removed all ports under direct visualization and allowed the pneumoperitoneum to escape as well as suctioned out. I then closed the supraumbilical incision, closing the fascia with 0 Vicryl suture previously placed. Copiously irrigated all incisions with normal saline, closing the 3 small 5 mm incisions with a single interrupted 4-0 undyed Monocryl subcuticular stitch and closed the supraumbilical incision with four interrupted 4-0 undyed Monocryl subcuticular stitches. Area was cleaned and dried and Dermabond placed and then dressings and patient was then transferred to recovery room in stable condition. Sponge, instrument and needle count correct at the end of the case. Job ID: [id number] DocumentID: [id number] Dictated Date: 08/31/2017 20:00:33 Metal Riveter Date: 08/31/2017 21:13:00 Dictated By: KULDIP ANGUIANO DO
[2017-08-31 21:30] VITALS: BP 110/75
--- NOTE | 2017-09-01 07:39 | Diagnostic Imaging Report ---
EXAM: FLUOROSCOPY INDICATION: LAP THADDEUS IN OR COMPARISON: Gallbladder ultrasound 08/31/2017. FINDINGS: Surgical clips in the gallbladder fossa. The common bile duct is patent with no filling defects identified. Contrast passes readily into the small bowel. IMPRESSION: Normal cholangiogram during a cholecystectomy. Fluoroscopy time 12.5 seconds. 9.9 mGy. Dictated by: Dictated on workstation # [id number]
--- OUTSIDE RECORDS SUMMARY | 2017-09-03 09:15 | XMS REPORT | Encounter Summary ---
Author Author [facility] Organization [facility] Address Unknown Phone Unavailable Care Team Providers Care Liquor Department Manager Name Role Phone PCP Unavailable Encounter Details Date Type Department Care Team Description 07/08/2017 Ancillary Rad Outpatient, Radiologist Diagnosis unknown Orders [address] [place] [address] Social History Tobacco Use Types Packs/Day Years [...]
--- OUTSIDE RECORDS SUMMARY | 2017-09-03 09:15 | XMS REPORT | Encounter Summary ---
Author Author [facility] Organization [facility] Address Unknown Phone Unavailable Care Team Providers Care Clinical Engineering Director Name Role Phone PCP Unavailable Encounter Details Date Type Department Care Team Description 07/05/2017 Hospital [facility] Radiology [address] [place] [address] Social History Tobacco Use Types Packs/Day Years [...]
--- OUTSIDE RECORDS SUMMARY | 2017-09-03 09:15 | XMS REPORT | Clinical Summary ---
Author Author [facility] Organization [facility] Address Unknown Phone Unavailable Care Team Providers Care Web Development Director Name Role Phone PCP Unavailable Source Comments Some departments are not documenting in the electronic medical record. If you do not see the information that you expected, contact Release of Information in the Health Information Management department at [phone] for further assistance in locating additional records.[facility] Allergies Active Allergy Reactions Severity Noted Date [...] 04/29/2016 Respiratory insufficiency 04/29/2016 SAH (subarachnoid hemorrhage) ([facility]) 04/21/2016 Encounters Date Type Specialty Care Team [...] 04/30/2016, 04/30/2016 SCREENING Implants Implanted Type Area Ham Rolling Machine Operator Device Expiration Model / Identifier Date Serial / Lot Device Closure 6fr Starclose Se Right: [employer]:VASC [id number] / Vascular Nitinol Clip - [id number] Femoral DEV [id number] . / Implanted: Qty: 1 on 04/21/2016 by Artery [id number] Db Bolivar MD Substitute Tissue 3x3in Lyoplant Left: AESCULAP NEURO 09/17/2018 [id number] / Dura Sodium Hydroxide [employer] DIVISION [id number] / Implanted: Qty: 1 on 04/24/2016 by [id number] Modesto Hsu MD Synapse Medical Aneurysm Clip Left: 45.711 / Implanted: Qty: 1 on 04/24/2016 by Brain N/A / Modesto Hsu MD N/A Synapse Medical Aneurysm Clip Left: 45.680 / Implanted: Qty: 1 on 04/24/2016 by Brain N/A / Modesto Hsu MD N/A Device Closure 70cm 6fr Angio-Seal Right: [employer] [id number] / Vip .035in Vascular Femoral 4591 . / Implanted: Qty: 1 on 04/27/2016 by Artery [id number] Abiodun Silva MD System Shunt Progav 2.0 Cranial AESCULAP INC 05/17/2020 [id number] / Implanted: Qty: 1 on 05/08/2016 by [id number] / Mihai Collier MD [id number] Results * CTA HEAD EXTERNAL IMAGING (07/05/2017) Narrative This order has been auto finalized and does not contain a result. from Last 3 Months
== END 2017-08-31 21:30 | disposition home or self-care (01) ==
LOC: EDUNIT# 12:11 → ER 12:12 → 4TH 15:30 → SDC 15:30 → UNDOADMOB 15:30 → UNDODISOB 21:30 → SDC 21:30
PROVIDERS: ATTEND Surgery
DX: K80.00 Calculus of gallbladder with acute cholecystitis without obstruction (principal); R11.2 Nausea with vomiting, unspecified; N39.0 Urinary tract infection, site not specified; G47.33 Obstructive sleep apnea (adult) (pediatric); I10 Essential (primary) hypertension; F32.9 Major depressive disorder, single episode, unspecified; K21.9 Gastro-esophageal reflux disease without esophagitis; Z79.899 Other long term (current) drug therapy; Z23 Encounter for immunization
CPT/HCPCS: 36415; 76705; 80053; 81000; 83605; 83690; 83735; 84484; 84703; 85025; 86141; 87077; 87081; 87088; 87186; 96361; 96374; 96375

== ENCOUNTER 2017-09-08 16:35 | Emergency (ER) | payer BC ==
[~2017-09-08] VITALS: Ht 170.2 cm; Wt 111.1 kg
[~2017-09-08 16:35] MED LIST changes: +MONT10TA24 PO; +SULF1TAB35 PO
--- OUTSIDE RECORDS SUMMARY | 2017-09-08 16:41 | XMS REPORT | Encounter Summary ---
Author Author [facility] Organization [facility] Address Unknown Phone Unavailable Care Team Providers Care Corrosion Control Engineer Name Role Phone PCP Unavailable Encounter Details Date Type Department Care Team Description 07/08/2017 Ancillary Rad Outpatient, Radiologist Diagnosis unknown Orders [address] [place] [address] Social History Tobacco Use Types Packs/Day Years [...]
--- OUTSIDE RECORDS SUMMARY | 2017-09-08 16:41 | XMS REPORT | Encounter Summary ---
Author [facility] Address Unknown Phone Unavailable Care Team Providers Care Expressive Art Therapist Name Role Phone PCP Unavailable Encounter Details Date Type Department Care Team Description 07/05/2017 Hospital [facility] Radiology [address] [place] [address] Social History Tobacco Use Types Packs/Day Years [...]
--- OUTSIDE RECORDS SUMMARY | 2017-09-08 16:41 | XMS REPORT | Clinical Summary ---
Author Author [facility] Organization [facility] Address Unknown Phone Unavailable Care Team Providers Care Manager Aviation Name Role Phone PCP Unavailable Source Comments Some departments are not documenting in the electronic medical record. If you do not see the information that you expected, contact Release of Information in the Health Information Management department at [phone] for further assistance in locating additional records.[facility] Allergies Active Allergy Reactions Severity [...] 04/29/2016 Respiratory insufficiency 04/29/2016 SAH (subarachnoid hemorrhage) ([facility]) 04/21/2016 Encounters Date Type Specialty [...] 04/30/2016, 04/30/2016 SCREENING Implants Implanted Type Area Seafood Farmer Device Expiration Model / Identifier Date Serial / Lot Device Closure 6fr Starclose Se Right: [employer]:VASC [id number] / Vascular Nitinol Clip - [id number] Femoral DEV [id number] . / Implanted: Qty: 1 on 04/21/2016 by Artery [id number] Db Bolivar MD Substitute Tissue 3x3in Lyoplant Left: AESCULAP NEURO 09/17/2018 [id number] / Dura Sodium Hydroxide [employer]ISION [id number] / Implanted: Qty: 1 on 04/24/2016 by [id number] Modesto Hsu MD [employer] Aneurysm Clip Left: 45.711 / Implanted: Qty: 1 on 04/24/2016 by Brain N/A / Modesto Hsu MD N/A [employer] Aneurysm Clip Left: 45.680 / Implanted: Qty: 1 on 04/24/2016 by Brain N/A / Modesto Hsu MD N/A Device Closure 70cm 6fr Angio-Seal Right: [employer] [id number] / Vip .035in Vascular Femoral 4591 . / Implanted: Qty: 1 on 04/27/2016 by Artery [id number] Abiodun Silva MD System Shunt Progav 2.0 Cranial AESCULAP INC 05/17/2020 [id number] / Implanted: Qty: 1 on 05/08/2016 by [id number] / Mihai Collier MD [id number] Results * [facility]A HEAD EXTERNAL IMAGING (07/05/2017) Narrative This order has been auto finalized and does not contain a result. from Last 3 Months
[2017-09-08] MEDS ORDERED: LACTATED RINGERS 1,000 ML IV SCH ×2 (17:30→19:45)
[2017-09-08] MEDS ORDERED: SCOPOLAMINE 1.5 MG (TRANSDERM-SCOP) PATCH TD ONE (17:30)
[2017-09-08] MEDS ORDERED: ONDANSETRON 4 MG/2 ML (SDV) Z0FRAN IVP ONE (17:30)
[2017-09-08 17:31] LABS: BASOPHILS # (AUTO) 0.1 10^3/uL (0.0-0.1); BASOPHILS % (AUTO) 1 % (0-10); EOSINOPHILS # (AUTO) 0.1 10^3/uL (0.0-0.3); EOSINOPHILS % (AUTO) 1 % (0-10); LYMPHOCYTES # (AUTO) 0.9 X 10^3 (1.0-4.0); LYMPHOCYTES % (AUTO) 9 % (12-44); MEAN CORPUSCULAR HEMOGLOBIN 29 PG (25-34); MEAN CORPUSCULAR HGB CONC 33 G/DL (32-36); MEAN CORPUSCULAR VOLUME 88 FL (80-99); MEAN PLATELET VOLUME 9.8 FL (7.4-10.4); MONOCYTES # (AUTO) 0.8 X 10^3 (0.0-1.0); MONOCYTES % (AUTO) 8 % (0-12); NEUTROPHILS # (AUTO) 8.2 X 10^3 (1.8-7.8); NEUTROPHILS % (AUTO) 82 % (42-75); PLATELET COUNT 430 10^3/uL (130-400); RED BLOOD COUNT 4.64 10^6/uL (4.35-5.85); RED CELL DISTRIBUTION WIDTH 15.2 % (10.0-14.5)
--- NOTE | 2017-09-08 17:31 | ED GI ---
General Chief Complaint: Abdominal/GI Problems Stated Complaint: N/V AFTER GALLBLADDER SURGERY 08/31 Source of Information: Patient, Family Exam Limitations: No Limitations History of Present Illness Time Seen By Provider: 17:27 Initial Comments TO ER accompanied by her sisters with c/o nausea and vomiting and dizziness. She has had dizziness worse with movement for 2-3 months. She's see Dr auguste from ENT but denies improvement. She also has nausea. Last week she was here in ER and found to have acute cholecystitis. She had a laparoscopic cholecystectomy by Dr Anguiano. No fevers or chills, no diarrhea, but persistent nausea and vomiting. 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 Was taken to and now has a "shunt". She denies any headache, neck pain , neurologic symptoms or confusion. Timing/Duration: Constant, Getting Worse Severity/Quality: Moderate Radiation: No Radiation Activities at Onset: None Allergies and Home Medications Allergies Coded Allergies: celecoxib (Verified Allergy, Unknown, 08/31/17) Home Medications Acetaminophen 325 Mg Tablet, 650 MG PO Q4H PRN for MILD PAIN, #100 Prescribed by: KULDIP WALTERS on 05/28/16 1642 Aspirin 81 Mg Tab.chew, 81 MG PO Q8HR, #90 Prescribed by: KULDIP WALTERS on 05/28/16 1642 Bupropion HCl 100 Mg Tablet, 300 MG PO DAILY, (Reported) Citalopram Hydrobromide 10 Mg Tablet, 10 MG PO DAILY, #30 Prescribed by: KULDIP WALTERS on 05/28/16 1642 Dextran 70/Hypromellose/Pf 1 Each Droperette, 1 EACH OU QID, #1 Prescribed by: KULDIP WALTERS on 05/28/16 1642 Doxazosin Mesylate 2 Mg Tablet, 2 MG PO HS, #30 Prescribed by: KULDIP WALTERS on 05/28/16 1642 Famotidine 20 Mg Tablet, 20 MG PO BID, #60 Prescribed by: KULDIP WALTERS on 05/28/16 1642 Lisinopril 20 Mg Tablet, 20 MG PO DAILY, #30 Prescribed by: KULDIP WALTERS on 05/28/16 1642 Montelukast Sodium 10 Mg Tablet, 10 MG PO HS, (Reported) Potassium Chloride 20 Meq Tab.er.prt, 40 MEQ PO DAILY@0700, #30 Prescribed by: KULDIP WALTERS on 05/28/16 1642 Promethazine HCl 25 Mg Tablet, 25 MG PO Q8H PRN for NAUSEA/VOMITING, #10 Prescribed by: DINESH CAVAZOS on 09/08/172038 Sulfamethoxazole/Trimethoprim 1 Each Tablet, 1 EACH PO BID, #10 Prescribed by: KULDIP ANGUIANO on 08/31/17 1923 [Oxycodone Hcl] 5 MG TAB, 5 MG PO Q4H PRN for PAIN, #60 Prescribed by: KULDIP WALTERS on 05/28/16 1643 Review of Systems Constitutional: see HPI, No chills, No fever EENTM: No Symptoms Reported, Other Respiratory: No Symptoms Reported Cardiovascular: No Symptoms Reported Gastrointestinal: See HPI, Denies Abdominal Pain, Denies Constipated, Denies Diarrhea, Nausea, Vomiting Genitourinary: No Symptoms Reported Musculoskeletal: no symptoms reported Skin: no symptoms reported Psychiatric/Neurological: No Symptoms Reported Endocrine: No Symptoms Reported Hematologic/Lymphatic: No Symptoms Reported Past Xqsqymv-Cpevoy-Rznwyi Hx Patient Social History Recent Foreign Travel: No Contact w/Someone Who Travel: No Recent Hopitalizations: No Immunizations Up To Date Tetanus Booster (TDap): Unknown Seasonal Allergies Seasonal Allergies: Yes Surgeries History of Surgeries: Yes (craniotomy-shunt placement (cerebral aneurysm)) Respiratory History of Respiratory Disorde: Yes (post vent-resp insufficiency-) Respiratory Disorders: Sleep Apnea Currently Using CPAP: Yes Currently Using BIPAP: No Cardiovascular History of Cardiac Disorders: Yes Neurological History of Neurological Disord: Yes (subarachnoid hemorrage) Reproductive System Hx Reproductive Disorders: No Sexually Transmitted Disease: No HIV/AIDS: No Female Reproductive Disorders: Denies Genitourinary History of Genitourinary Disor: No Gastrointestinal History of Gastrointestinal Di: Yes (ilius; current; PREVIOUS PEG TUBE ) Musculoskeletal History of Musculoskeletal Dis: Yes Musculoskeletal Disorders: Foot Drop Endocrine History of Endocrine Disorders: No HEENT History of HEENT Disorders: Yes HEENT Disorders: Cataract Cancer History of Cancer: No Psychosocial History of Psychiatric Problem: Yes Behavioral Health Disorders: Anxiety, Depression Integumentary History of Skin or Integumenta: No Blood Transfusions History of Blood Disorders: No Family Medical History Significant Family History: Hypertension Family Medial History: Patient reports no known family medical history. Physical Exam Vital Signs VS - Last 72 Hours, by Label 1009/08/17 09/08/17 17:22 19:05 19:53 Temp 98.1 Pulse 57 56 49 Resp 20 18 16 B/P (MAP) 146/80 145/67 150/71 Pulse Ox 94 99 98 O2 Delivery Room Air Room Air Room Air Capillary Refill : General Appearance: WD/WN, no apparent distress HEENT: PERRL/EOMI, normal ENT inspection, TMs normal, other (mild horizontal nystagmus) Neck: non-tender, full range of motion Respiratory: lungs clear, normal breath sounds, no respiratory distress, no accessory muscle use Gastrointestinal: normal bowel sounds, non tender, soft, other (abdominal incisions with minimal surrounding brusing, no drainage or erythema. ) Extremities: normal range of motion, non-tender Neurologic/Psychiatric: alert, normal mood/affect, oriented x 3 Skin: normal color, warm/dry Date of ETT Placement: Apr 21, 2016 Time of ETT Placement: 0045 Progress/Results/Core Measures Results/Orders Lab Results Laboratory Tests Test 09/08/17 17:18 09/08/17 17:46 Range/Units White Blood Count 10.0 4.3-11.0 10^3/uL Red Blood Count 4.64 4.35-5.85 10^6/uL Hemoglobin 13.6 11.5-16.0 G/DL Hematocrit 41 35-52 % Mean Corpuscular Volume 88 80-99 FL Mean Corpuscular Hemoglobin 29 25-34 PG Mean Corpuscular Hemoglobin Concent 33 32-36 G/DL Red Cell Distribution Width 15.2 H 10.0-14.5 % Platelet Count 430 H 130-400 10^3/uL Mean Platelet Volume 9.8 7.4-10.4 FL Neutrophils (%) (Auto) 82 H 42-75 % Lymphocytes (%) (Auto) 9 L 12-44 % Monocytes (%) (Auto) 8 0-12 % Eosinophils (%) (Auto) 1 0-10 % Basophils (%) (Auto) 1 0-10 % Neutrophils # (Auto) 8.2 H 1.8-7.8 X 10^3 Lymphocytes # (Auto) 0.9 L 1.0-4.0 X 10^3 Monocytes # (Auto) 0.8 0.0-1.0 X 10^3 Eosinophils # (Auto) 0.1 0.0-0.3 10^3/uL Basophils # (Auto) 0.1 0.0-0.1 10^3/uL Sodium Level 137 135-145 MMOL/L Potassium Level 5.1 H 3.6-5.0 MMOL/L Chloride Level 104 98-107 MMOL/L Carbon Dioxide Level 22 21-32 MMOL/L Anion Gap 11 5-14 MMOL/L Blood Urea Nitrogen 16 7-18 MG/DL Creatinine 1.17 0.60-1.30 MG/DL Estimat Glomerular Filtration Rate 49 BUN/Creatinine Ratio 14 Glucose Level 106 H 70-105 MG/DL Calcium Level 9.3 8.5-10.1 MG/DL Total Bilirubin 0.5 0.1-1.0 MG/DL Aspartate Amino Transf (AST/SGOT) 39 H 5-34 U/L Alanine Aminotransferase (ALT/SGPT) 35 0-55 U/L Alkaline Phosphatase 132 40-136 U/L Total Protein 7.9 6.4-8.2 GM/DL Albumin 4.1 3.2-4.5 GM/DL Thyroid Stimulating Hormone (TSH) 1.10 0.35-4.94 UIU/ML Urine Color YELLOW Urine Clarity CLEAR Urine pH 5 5-9 Urine Specific [place] 1.025 H 1.016-1.022 Urine Protein 1+ H NEGATIVE Urine Glucose (UA) NEGATIVE NEGATIVE Urine Ketones 1+ H NEGATIVE Urine Nitrite NEGATIVE NEGATIVE Urine Bilirubin NEGATIVE NEGATIVE Urine Urobilinogen 4 H NORMAL MG/DL Urine Leukocyte Esterase 1+ H NEGATIVE Urine RBC (Auto) NEGATIVE NEGATIVE Urine RBC NONE /HPF Urine WBC 0-2 /HPF Urine Squamous Epithelial Cells 10-25 H /HPF Urine Crystals NONE /LPF Urine Bacteria TRACE /HPF Urine Casts NONE /LPF Urine Mucus NEGATIVE /LPF Urine Culture Indicated NO My Orders Orders - DINESH CAVAZOS APRN Cbc With Automated Diff (09/08/17 17:25) Comprehensive Metabolic Panel (09/08/17 17:25) Ua Culture If Indicated (09/08/17 17:25) Saline Lock/Iv-Start (09/08/17 17:25) Ct Head Wo (09/08/17 17:25) Lactated Ringers (Lr 1000 Ml Iv Solution (09/08/17 17:30) Scopolamine Patch (Transderm-Scop Patch) (09/08/17 17:30) Ondansetron Injection (Zofran Injectio (09/08/17 17:30) Thyroid Stimulating Hormone (09/08/17 17:25) Promethazine Injection (Phenergan Injec (09/08/17 18:30) Promethazine Injection (Phenergan Injec (09/08/17 19:45) Lactated Ringers (Lr 1000 Ml Iv Solution (09/08/17 19:45) Antacid Suspension (Mylanta Suspension (09/08/17 19:45) Lidocaine 2% Viscous 15 Ml (Xylocaine Vi (09/08/17 19:45) Ct Abdomen/Pelvis W (09/08/17 19:47) Iohexol Injection (Omnipaque 350 Mg/Ml 1 (09/08/17 20:00) Ns (Ivpb) (Sodium Chloride 0.9% Ivpb Bag (09/08/17 20:00) Pharmacy Communication (Pharmacy Communi (09/08/17 19:55) Medications Given in ED Current Medications Medications Dose Ordered Sig/Kerline Route Start Time Stop Time Status Last Admin Dose Admin Al Hydrox/Mg Hydrox/Simethicone 30 ml ONCE ONCE PO 09/08/17 19:45 09/08/17 19:46 DC 09/08/17 19:47 30 ML Iohexol 100 ml ONCE ONCE IV 09/08/17 20:00 09/08/17 20:01 DC 09/08/17 20:16 100 ML Lidocaine HCl 15 ml ONCE ONCE PO 09/08/17 19:45 09/08/17 19:46 DC 09/08/17 19:47 15 ML Ondansetron HCl 8 mg ONCE ONCE IVP 09/08/17 17:30 09/08/17 17:31 DC 09/08/17 17:41 8 MG Promethazine HCl 12.5 mg ONCE ONCE IVP 09/08/17 18:30 09/08/17 18:31 DC 09/08/17 18:39 12.5 MG Promethazine HCl 12.5 mg ONCE ONCE IVP 09/08/17 19:45 09/08/17 19:46 DC 09/08/17 19:47 12.5 MG Scopolamine 1.5 mg ONCE ONCE TD 09/08/17 17:30 09/08/17 17:31 DC 09/08/17 17:41 1.5 MG Sodium Chloride 100 ml ONCE ONCE IV 09/08/17 20:00 09/08/17 20:01 DC 09/08/17 20:16 80 ML Vital Signs/I&O Vital Sign - Last 12Hours 09/08/17 09/08/17 09/08/17 17:22 19:05 19:53 Temp 98.1 Pulse 57 56 49 Resp 20 18 16 B/P (MAP) 146/80 145/67 150/71 Pulse Ox 94 99 98 O2 Delivery Room Air Room Air Room Air Intake and Output 09/09/17 00:00 Intake Total 2000 ml Balance 2000 ml Departure Communication (Admissions) Progress Notes 1934- patient reports this he is still nauseous after 8 mg of Zofran and 12.5 mg of Phenergan. I will order a second bag of LR and an additional 12.5 mg of Phenergan IV and GI cocktail. 2039-Still reports no improvement in symptoms of nausea whatsoever after additional fluids and phenergan. CT abdomen/pelvis is unremarkable. . She has not dry heaved or vomited since arrival. Various family members at the bedside at all times. Patient reports that her sister is admitted upstairs currently for a femur fracture. Impression Impression: Primary Impression: Nausea and vomiting Disposition: HOME, SELF-CARE Condition: Stable Departure-Patient Inst. Decision time for Depature: 19:47 Referrals: BERNABE FERRARI DO (PCP/Family) Primary Care Physician Patient Instructions: Nausea and Vomiting, Adult Add. Discharge Instructions: 1. Clear liquids only for the next 12 hours. Return to ER for any worsening. See your Regular doctor later this week for recheck. Use the new nausea medication as directed All discharge instructions reviewed with patient and/or family. Voiced understanding. Scripts Promethazine HCl (Promethazine Tablet) 25 Mg Tablet 25 MG PO Q8H Y for NAUSEA/VOMITING, #10 TAB Prov: DINESH CAVAZOS APRN 09/08/17 Work/School Note: Work Release Form Date Seen in the Emergency Department: Sep 08, 2017 Return to Work: Sep 10, 2017 Copy Copies To 1: BERNABE FERRARI PETER J APRN Sep 08, 2017 17:31
[2017-09-08 17:51] LABS: ALBUMIN 4.1 GM/DL (3.2-4.5); BILIRUBIN,TOTAL 0.5 MG/DL (0.1-1.0); CALCIUM 9.3 MG/DL (8.5-10.1); CREATININE SERUM 1.17 MG/DL (0.60-1.30); POTASSIUM 5.1 MMOL/L (3.6-5.0); TOTAL PROTEIN 7.9 GM/DL (6.4-8.2)
[2017-09-08 17:55] LABS: BILIRUBIN,URINE NEGATIVE (NEGATIVE); KETONES,URINE 1+ (NEGATIVE); LEUKOCYTE ESTERASE ,URINE 1+ (NEGATIVE); NITRITE,URINE NEGATIVE (NEGATIVE); PH,URINE 5 (5-9); PROTEIN,URINE 1+ (NEGATIVE); UROBILINOGEN,URINE 4 MG/DL (NORMAL)
[2017-09-08 18:05] LABS: WBC,URINE 0-2 /HPF
[2017-09-08 18:12] LABS: THYROID STIMULATING HORMONE 1.1 UIU/ML (0.35-4.94)
--- NOTE | 2017-09-08 18:27 | Diagnostic Imaging Report ---
PROCEDURE: CT head without contrast. TECHNIQUE: Multiple contiguous axial images were obtained through the brain without the use of intravenous contrast. INDICATION: Prior history of hemorrhage. Dizziness and nausea today. EXAMINATION: CT brain without contrast, 09/08/2017. COMPARISON: 04/21/2016. FINDINGS: A FILLING LAYER UP shunt is noted entering from the right anterior parietal region with its tip near midline of the ventricles, anteriorly. Both lateral ventricles appear slightly prominent. The third and fourth ventricles are also prominent in appearance but this is age indeterminate as no CT imaging is available in between the original from 2015 prior to shunt placement. There is evidence of encephalomalacia within the left posterior cervical cerebellum with an overlying craniotomy defect noted. Diffuse chronic ischemic change is seen in periventricular distribution throughout the remaining brain. No definite acute hemorrhage is seen and there is no definite acute infarct appreciated. No mass effect or midline shift noted. The calvarium is intact. Paranasal sinuses and mastoid air cells appear to be clear. IMPRESSION: 1. Diffuse chronic changes described with evidence of prior surgery and an area of encephalomalacia in the left cerebellum with no definite acute infarcts appreciated. 2. Hydrocephalus diffusely throughout the ventricles, as described above, age-indeterminate. A FILLING LAYER UP shunt is noted. 3. Other chronic changes as described above. No definite superimposed acute hemorrhage or infarct noted but there is some limitation due to streak artifact from the shunt on the right. Dictated by: Dictated on workstation # [id number]
[2017-09-08] MEDS ORDERED: PROMETHAZINE INJ 25 MG/ML (PHENERGAN) AMP IVP ONE ×2 (18:30→19:45)
[2017-09-08 19:05] VITALS: BP 145/67
[2017-09-08] MEDS ORDERED: LIDOCAINE 2% VISCOUS 15 ML UDC PO ONE (19:45)
[2017-09-08] MEDS ORDERED: ANTACID SUSP 30 ML UDC (MYLANTA) PO ONE (19:45)
[2017-09-08 19:53] VITALS: BP 150/71
[2017-09-08] MEDS ORDERED: IOHEXOL 350 MG/ML 100 ML (OMNIPAQUE 350) VIAL IV ONE (20:00)
[2017-09-08] MEDS ORDERED: NS 100 ML (IVPB) BAG IV ONE (20:00)
[2017-09-08] MEDS ORDERED: PROM25TA14 PO (20:39)
--- NOTE | 2017-09-08 20:44 | Diagnostic Imaging Report ---
INDICATION: History of gallbladder surgery one week ago. Nausea and vomiting since the surgery. Pain at the incision site. Low-grade fever. EXAMINATION: CT abdomen and pelvis with contrast, 09/08/2017. COMPARISON: None. FINDINGS: Postoperative changes noted with fat stranding about the anterior midline of the abdomen, likely postoperative. No measurable fluid collection or abscess is appreciated. A catheter is seen with the tip in the right upper quadrant, anteriorly. This is possibly a MANAGER [employer] shunt given its course proximally within the subcutaneous soft tissues in the lower right chest, incompletely imaged. Correlate clinically. It exits the right anterior upper abdomen. The liver demonstrates diffuse fatty infiltration. There are clips in the gallbladder fossa. No measurable fluid collection within the gallbladder fossa is appreciated. The pancreas is slightly atrophied but otherwise normal. Adrenal glands and spleen are unremarkable. The kidneys demonstrate no acute abnormalities. There is no significant ascites. There is no free air in the abdomen. Within the pelvis no acute abnormality is seen. Evidence of diverticulosis is noted but no evidence for acute diverticulitis. No acute osseous abnormality is seen. Sclerotic areas in the left sacrum are most likely bone islands. Metastatic disease is felt to be unlikely given no prior history of carcinoma; however, clinical correlation with history recommended. Otherwise, unremarkable appearance of the osseous structures. IMPRESSION: 1. Fat stranding in the anterior abdominal wall. Subcutaneous soft tissues are likely postoperative in nature with no abscess or significant hematoma seen. 2. Postoperative changes in the gallbladder fossa which appear unremarkable. Minimal fat stranding along the proximal duodenal sweep, most likely reactive. Duodenitis could cause a similar appearance but felt to be less likely, correlate with symptoms. 3. Other incidental findings as discussed above. Dictated by: Dictated on workstation # [id number]
[2017-09-08 20:56] VITALS: BP 142/72
== END 2017-09-08 20:54 | disposition home or self-care (01) ==
LOC: EDUNIT# 16:35 → ER 16:37
DX: R11.2 Nausea with vomiting, unspecified (principal); G47.30 Sleep apnea, unspecified; F41.9 Anxiety disorder, unspecified; F32.9 Major depressive disorder, single episode, unspecified; Z79.82 Long term (current) use of aspirin; Z87.820 Personal history of traumatic brain injury
CPT/HCPCS: 36415; 70450; 74177; 80053; 81000; 84443; 85025; 96361; 96374; 96375; 96376

== ENCOUNTER → 2023-09-05 | Outpatient (CLI) | payer MEDICARE ==
[~2023-09-05] MED LIST changes: -CITA10TA7 PO; +CITA10TA9 PO; -HEPA500017 SC; +HEPA500018 SC; -LISI-552 PO; +LISI20TA26 PO; +MONT-40 PO; -MONT10TA24 PO; +POTA-169 PO; -POTA20TA8 PO; +PROM25TA14 PO; -SULF1TAB35 PO; +SULF1TAB38 PO
--- NOTE | 2023-09-05 15:12 | Diagnostic Imaging Report ---
INDICATION: Routine screening. COMPARISON: 09/16/2018. TECHNIQUE: 2D and 3D bilateral screening mammography was performed with CAD. FINDINGS: Scattered fibroglandular densities are identified bilaterally. There is a nodular density in the central left breast on the CC view at the nipple line. No definite correlate on the MLO view is identified but additional views are recommended. The right breast is unremarkable. No malignant-appearing microcalcifications are seen. The axillae are unremarkable. IMPRESSION: Left breast density. Additional views are recommended for further evaluation. ACR BI-RADS Category 0: Incomplete. (Needs additional imaging evaluation). Result letter will be mailed to the patient. Note: At least 10% of breast cancer is not imaged by mammography. Dictated by: Dictated on workstation # [id number]
== END ==
LOC: RAD 10:58
PROVIDERS: ATTEND Nurse Practitioner Family
DX: Z12.31 Encounter for screening mammogram for malignant neoplasm of breast (principal); N63.20 Unspecified lump in the left breast, unspecified quadrant
CPT/HCPCS: 77063; 77067

== ENCOUNTER → 2023-10-21 | Outpatient (CLI) | payer MEDICARE ==
--- NOTE | 2023-10-21 14:12 | Diagnostic Imaging Report ---
EXAMINATION: 3D unilateral diagnostic left mammogram with CAD. INDICATION: Abnormal screening mammogram. FINDINGS: The recent screening mammogram performed on 09/05/2023 noted a small nodular density in the central left breast. This is only seen on the CC view. That finding is not as conspicuous on the compression views of this area. There is a small similar appearing but slightly larger 5 mm nodular density in the inferior aspect of the breast at middle depth. This finding has a generally benign appearance. IMPRESSION: The small nodular density in question is not as well-visualized as on the previous study. Ultrasound would be recommended for further study. ACR BI-RADS Category 0: Incomplete. (Needs additional imaging evaluation). Result letter will be mailed to the patient. Note: At least 10% of breast cancer is not imaged by mammography. Dictated by: Dictated on workstation # [id number]
--- NOTE | 2023-10-21 16:15 | Diagnostic Imaging Report ---
EXAMINATION: Ultrasound of the left breast. INDICATION: Abnormal mammogram. FINDINGS: The screening mammogram performed on 09/05/2023 noted a small nodular density in the central left breast. That finding was not particularly well visualized on the diagnostic mammogram performed prior to this study. On this study, there is no discrete solid or cystic mass in the midportion of the breast to correspond to the finding on the screening mammogram. I do suspect that the area in question on the screening mammogram and the diagnostic study is a benign process. Furthermore, there are no solid lesions identified on this study to suggest malignancy. Even so, I would recommend that a short-term (6 month) followup mammogram and ultrasound exam of the left breast be performed for further study. IMPRESSION: There is no evidence for malignancy. Recommendations as above. ACR BI-RADS Category 3: Probably benign findings. Dictated by: Dictated on workstation # [id number]
== END ==
LOC: RAD 10:31
PROVIDERS: ATTEND Nurse Practitioner Family
DX: R92.8 Other abnormal and inconclusive findings on diagnostic imaging of breast (principal)
CPT/HCPCS: 76642; 77065; G0279